=== PATIENT | female | born 1955 | race Asian ===

== ENCOUNTER 2019-11-09 10:48 | Observation (INO) | payer OTHER ==
[2019-11-05 14:59] VITALS: BP 167/80
[2019-11-05 15:04] LABS: MEAN CORPUSCULAR HEMOGLOBIN 25.2 pg (27.0-33.0); MEAN CORPUSCULAR HGB CONC 30.8 g/dL (32.0-36.0); MEAN CORPUSCULAR VOLUME 81.6 fL (79-99); PLATELET COUNT (AUTO) 193 K/uL (130-400); RED BLOOD CELL COUNT(AUTO) 4.41 MIL/uL (4.00-5.50); RED CELL DISTRIBUTION WIDTH 19.6 % (11.0-15.5); WHITE BLOOD COUNT (AUTO) 5.6 K/uL (4.8-10.8)
[2019-11-05 15:19] LABS: INR 0.94 (0.85-1.15); PARTIAL THROMBOPLASTIN TIME 26.7 SEC (26.3-35.5); PROTHROMBIN TIME 9.9 SEC (9.6-11.6)
[2019-11-05 15:23] LABS: APPEARANCE,URINE Cloudy (CLEAR); BILIRUBIN,URINE Negative (NEGATIVE); COLOR,URINE Yellow (YELLOW); GLUCOSE, URINE (UA) Negative (NEGATIVE); KETONES,URINE Negative (NEGATIVE); LEUKOCYTE ESTERASE ,URINE Moderate (NEGATIVE); NITRATE,URINE Negative (NEGATIVE); OCCULT BLOOD,URINE Small (NEGATIVE); PROTEIN,URINE Negative (NEGATIVE)
--- NOTE | 2019-11-05 15:23 | NUR ---
EKG ABNORMAL EKG REPORTED TO DR. CRAIG. NO FURTHER ORDERS GIVEN OK TO PROCEED WITH SX
[2019-11-05 15:29] LABS: CREATININE 0.9 mg/dL (0.5-1.5)
[2019-11-05 15:35] LABS: BACTERIA,URINE Rare /HPF (None Seen); SQUAMOUS EPITHELIAL CELL,UR 0-2 /HPF (0-2)
--- NOTE | 2019-11-08 16:50 | NUR ---
RE: ABNORMAL UA CALLED DR BANKS'S OFFICE TO FOLLOW UP ON THE FAX REGARDING ABNORMAL UA AND URINE CX, NO ANSWER.
[2019-11-09] VITALS (29 sets, daily range): BP systolic 126–190; BP diastolic 63–90
[~2019-11-09] VITALS: Ht 162.6 cm; Wt 50.3 kg
[2019-11-09] MEDS: CEFAZOLIN SODIUM 1 GM VIAL IVP SCH ×3 (06:00→20:29)
[~2019-11-09 10:48] MED LIST: LACTATED RINGERS 1000ML 1,000 ML IV SCH; LOSA50TA64 PO; METO-391 PO; PHARMACY COMMUNICATION MISC SCH
--- NOTE | 2019-11-09 11:44 | NUR ---
TRANSLATION pt understands some kittitian and speaks some kittitian speaks kittitian and translates for her Addendum: 11/09/19 at 1146 by WILL BAIG RN RN Amended: Links added.
[2019-11-09] MEDS ORDERED: IOHEXOL-350 50ML VIAL IV ONE (12:49)
[2019-11-09] MEDS ORDERED: MIDAZOLAM HCL 1 MG/ML 2ML VIAL ONE (13:30)
[2019-11-09] MEDS ORDERED: DEXAMETHASONE SOD PHOSPHATE 10MG/ML 1ML VIAL ONE (13:30)
[2019-11-09] MEDS ORDERED: LIDOCAINE PF 2% 5ML ABBOJECT ONE (13:30)
[2019-11-09] MEDS ORDERED: ONDANSETRON HCL 4 MG/2 ML VIAL ONE (13:31)
[2019-11-09] MEDS ORDERED: PROPOFOL 10 MG/ML 20ML VIAL IV ONE (13:31)
[2019-11-09] MEDS ORDERED: FENTANYL CITRATE PF 50 MCG/1 ML 2ML VIAL ONE (13:31)
[2019-11-09] MEDS ORDERED: EPHEDRINE SULFATE 50 MG/ML AMPULE ONE (13:41)
[2019-11-09] MEDS ORDERED: ROCURONIUM 10MG/1ML SYR 10 MG/ML ML ONE (13:43)
[2019-11-09] MEDS ORDERED: GLYCOPYRROLATE 1 MG/5 ML SYRINGE ONE (13:54)
[2019-11-09] MEDS ORDERED: HYDRALAZINE HCL 20 MG/ML VIAL ONE (15:50)
--- NOTE | 2019-11-09 16:50 | NUR ---
POST OP NOTE. PT RECEIVED TO ROOM 322, S/P STENT PLACEMENT. IVF VIA 20G LT ARM, TORRES CATH IN PLACE, URINE PALE YELLOW, DENIES ANY DISCOMFORT, DROWSY BUT EASY TO AROUSE.. SPOUSE AT BEDSIDE.
[2019-11-09] MEDS ORDERED: ACETAMINOPHEN-CODEINE 300/30MG TAB PO PRN (18:15)
[2019-11-09] MEDS ORDERED: ACETAMINOPHEN 325 MG TAB PO PRN (18:15)
[2019-11-09] MEDS ORDERED: MEPERIDINE-PF 50 MG/ML SYG IM PRN (18:15)
[2019-11-09] MEDS ORDERED: ONDANSETRON HCL 4 MG/2 ML VIAL IVP PRN (18:15)
[2019-11-09] MEDS: LACTATED RINGERS 1000ML 1,000 ML IV SCH (20:29)
--- NOTE | 2019-11-09 20:30 | NUR ---
MEDS SHIFT ASSESSMENT DONE, PLEASE REFER TO CHART. PT COMPLAINTS OF LOWER ABDOMINAL PAINS, MEDICATED WITH TYLENOL #3 PO. PT COMPLAINTS OF PAIN ON PIV SITE AND REQUESTING TO BE REMOVED. PIV SITE DISCONTINUED WITH CATHETER INTACT. RE-INSERTED G20 TO RT HAND THEN CONTINUED IVF. PT TRIED TO EAT HER DINNER BUT WITH POOR APPETITE. NEW IVF BAG HUNG. DUE MEDS ADMINISTERED, TOLERATED WELL. KEPT RESTED AND COMFORTABLE. CALL LIGHT WITHIN REACH. WILL RE-ASSESS PT.
--- NOTE | 2019-11-10 02:00 | NUR ---
ROUNDS PT RESTING WELL, FAIRLY ASLEEP. NO DISTRESS NOTED. KEPT RESTED AND UNDISTURBED. WILL MONITOR PT.
[2019-11-10] MEDS: CEFAZOLIN SODIUM 1 GM VIAL IVP SCH ×2 (02:53→09:48)
[2019-11-10 03:00] VITALS: BP 137/47
[2019-11-10] MEDS: LACTATED RINGERS 1000ML 1,000 ML IV SCH ×2 (03:55→06:19)
[2019-11-10 05:52] LABS: BASOPHILS % (AUTO) 0.8 % (0.0-5.0); EOSINOPHILS % (AUTO) 3.6 % (0.0-8.0); HEMATOCRIT 33.5 % (36-48); LYMPHOCYTES % (AUTO) 29.7 % (21.0-51.0); MEAN CORPUSCULAR HEMOGLOBIN 24.9 pg (27.0-33.0); MEAN CORPUSCULAR VOLUME 80.3 fL (79-99); MONOCYTES % (AUTO) 6.2 % (3.0-13.0); NEUTROPHILS % (AUTO) 59.5 % (40.0-77.0); PLATELET COUNT (AUTO) 183 K/uL (130-400); RED BLOOD CELL COUNT(AUTO) 4.17 MIL/uL (4.00-5.50); RED CELL DISTRIBUTION WIDTH 19.9 % (11.0-15.5); WHITE BLOOD COUNT (AUTO) 4.7 K/uL (4.8-10.8)
--- NOTE | 2019-11-10 06:06 | NUR ---
REFUSED PT REFUSING TEDS NOR SCD'S AT THIS TIME. KEPT OFF FOR NOW. NO OTHER CONCERNS VERBALIZED. KEPT COMFORTABLE IN BED. FOR MORE CARE.
[2019-11-10 06:33] LABS: CREATININE 0.9 mg/dL (0.5-1.5); POTASSIUM 3.9 mmol/L (3.5-5.1)
[2019-11-10 07:36] VITALS: BP 151/69
[2019-11-10] MEDS ORDERED: TAMSULOSIN HCL 0.4 MG CAP.ER.24H PO SCH (09:00)
[2019-11-10 10:44] VITALS: BP 134/65
--- NOTE | 2019-11-10 12:47 | NUR ---
Contacted Dr. Vanessa lee; to see pt. when he rounds.
--- NOTE | 2019-11-10 13:25 | NUR ---
MD rounded; d/c order obtained. F/C and green string removed simultaneously without incident per MD order; no hematuria or pain. Pt voided approx. 200 cc after removal of catheter with no pain. SL dc'd from r forearm intact, no redness or swelling at site. Pt. showering at this time in anticipation of discharge.
--- NOTE | 2019-11-10 14:50 | NUR ---
Pt. dc'd to self care via private vehicle without incident. D/C completed; pt. and spouse verbalize understanding of instructions as given including post ureteroscopy care, new medications, and f/u appointments. No c/o pain, retention or hematuria at this time.
== END 2019-11-10 15:00 | disposition home or self-care (01) ==
LOC: DAH 10:48 → DAHIP 10:49 → DAH 10:49 → 3DH 16:44
PROVIDERS: ADMIT Urology; ATTEND Urology
DX: N20.2 Calculus of kidney with calculus of ureter (principal); Z90.49 Acquired absence of other specified parts of digestive tract; Z88.6 Allergy status to analgesic agent
CPT/HCPCS: 36415 ×3; 52332; 52352; 71046; 74420; 80048 ×2; 81001; 82360 ×2; 85025; 85027; 85610; 85730; 87077; 87088; 87186; 93005; 96374; 96376; A4215; A4221; A4222; A4223; A4344; A4354; A4510; A4600; A4663; A4930; A5113; A6207; A6260; C1751; C1758 ×2; C1769 ×2; C1894; C2617; G0378 ×26; J0360; J0690 ×4; J1100; J2001; J2250; J2405; J2704; J3010; J3490 ×2; J7030; J7120 ×3; Q9967

== ENCOUNTER → 2019-11-30 | Outpatient (CLI) | payer OTHER ==
[~2019-11-30] MED LIST changes: -LACTATED RINGERS 1000ML 1,000 ML IV SCH; -PHARMACY COMMUNICATION MISC SCH
[2019-11-30 12:16] LABS: BASOPHILS % (AUTO) 1.1 % (0.0-5.0); EOSINOPHILS % (AUTO) 3.4 % (0.0-8.0); HEMATOCRIT 36.3 % (36-48); LYMPHOCYTES % (AUTO) 29.7 % (21.0-51.0); MEAN CORPUSCULAR HEMOGLOBIN 25.7 pg (27.0-33.0); MEAN CORPUSCULAR HGB CONC 30.9 g/dL (32.0-36.0); MEAN CORPUSCULAR VOLUME 83.3 fL (79-99); MONOCYTES % (AUTO) 5.8 % (3.0-13.0); NEUTROPHILS % (AUTO) 59.8 % (40.0-77.0); PLATELET COUNT (AUTO) 208 K/uL (130-400); RED BLOOD CELL COUNT(AUTO) 4.36 MIL/uL (4.00-5.50); RED CELL DISTRIBUTION WIDTH 19.4 % (11.0-15.5); WHITE BLOOD COUNT (AUTO) 4.5 K/uL (4.8-10.8)
[2019-11-30 12:25] LABS: CREATININE 1.1 mg/dL (0.5-1.5); POTASSIUM 3.3 mmol/L (3.5-5.1)
== END | disposition home or self-care (01) ==
LOC: LAB 11:55
PROVIDERS: ATTEND Urology
DX: N13.39 Other hydronephrosis (principal)
CPT/HCPCS: 36415; 80048; 85025

== ENCOUNTER → 2019-12-01 | Outpatient (CLI) | payer OTHER ==
[~2019-12-01] MED LIST changes: +IOHEXOL-350 75 ML VIAL IV ONE
== END | disposition home or self-care (01) ==
LOC: RAH 09:49
PROVIDERS: ATTEND Urology
DX: N13.39 Other hydronephrosis (principal)
CPT/HCPCS: 74400; Q9967